=== PATIENT | female | born 1975 | race Caucasian/White ===

== ENCOUNTER 2022-11-26 12:40 | Emergency (ER) | payer MEDICAID ==
[~2022-11-26] VITALS: Ht 154.9 cm; Wt 56.1 kg
[2022-11-26 13:04] VITALS: TEMP 97.9; O2SAT 100
[2022-11-26 14:00] VITALS: BP 104/60; PULSE 59; RESP 16
[2022-11-26] MEDS ORDERED: KETOROLAC 30MG/ML VIAL IM ONE (14:00)
[2022-11-26] MEDS ORDERED: CYCL10TA21 MT (15:19)
[2022-11-26] MEDS ORDERED: IBUP-2029 MT (15:19)
== END 2022-11-26 15:33 | disposition home or self-care (01) ==
LOC: ER 12:40
DX: M54.50 Low back pain, unspecified (principal)
CPT/HCPCS: 99283; 81025; 72100; 96372; J1885